=== PATIENT | female | born 1980 | race Caucasian/White ===

== ENCOUNTER 2022-01-19 07:33 | Outpatient (CLI) | payer OTHER, SELFPAY ==
[2022-01-19 10:11] LABS: Albumin* 4.4 g/dL (3.3-5.0)
[2022-01-19 10:12] LABS: Chloride* 109 mmol/L (96-114); Potassium* 4.6 mmol/L (3.6-5.1); Sodium* 141 mmol/L (135-149)
[2022-01-19 10:14] LABS: Aspartate Amino Transferase* 28 U/L (12-35); Bilirubin Total* 0.3 mg/dL (0.1-1.5); Carbon Dioxide* 25 mmol/L (20-32); Cholesterol* 165 mg/dL (90-199); Creatinine* 0.8 mg/dL (0.5-1.5); Estimated Glomerular Filt Rate 96 ml/min; Total Protein* 6.9 g/dL (6.0-8.3)
[2022-01-19 10:15] LABS: Alanine Aminotransferase* 36 U/L (4-35); Alkaline Phosphatase* 61 U/L (40-150); Blood Urea Nitrogen* 24 mg/dL (5-24); Calcium* 9.3 mg/dL (8.4-10.6); Glucose* 88 mg/dL (60-115); HDL Cholesterol* 52 mg/dL (>=50); LDL Cholesterol Calculated 95 mg/dL (<100); Triglycerides* 91 mg/dL (40-149)
[2022-01-19 11:03] LABS: Vitamin B12* 735 pg/mL (243-894)
== END 2022-01-19 07:34 | disposition home or self-care (01) ==
LOC: NFLDREF 07:33
PROVIDERS: PCP Physician Assistant Medical; Visit Provider Physician Assistant Medical
DX: Z00.00 Encounter for general adult medical examination without abnormal findings (principal); R63.5 Abnormal weight gain; M79.604 Pain in right leg; M79.605 Pain in left leg; Z13.6 Encounter for screening for cardiovascular disorders
CPT/HCPCS: 80053; 80061; 82533; 82607; 84443

== ENCOUNTER 2023-09-14 16:04 | Outpatient (CLI) | payer OTHER, SELFPAY | END 2023-09-14 16:05 | disposition home or self-care (01) | PROVIDERS: PCP Physician Assistant Medical; Visit Provider Physician Assistant Medical | DX: R79.89 Other specified abnormal findings of blood chemistry (principal); E66.9 Obesity, unspecified; R53.83 Other fatigue; R63.5 Abnormal weight gain; R52 Pain, unspecified | CPT/HCPCS: 80053; 82306; 82550; 84443; 86039; 86140; 86200; 86231; 86258; 86364; 86431; 86618; 86812 ==